=== PATIENT | female | born 1980 | race Caucasian/White ===

== ENCOUNTER → 2019-01-31 17:13 | Outpatient (CLI) | payer OTHER, SELFPAY ==
[2019-01-31 19:06] LABS: Basophils # 0.1 K/mm3 (0-0.2); Basophils % 0.7 % (0.1-2.0); Eosinophils # 0.3 K/mm3 (0.0-0.4); Hematocrit 41.9 % (37.0-47.0); Hemoglobin 13.6 g/dL (12.2-16.2); Lymphocytes # 3.4 K/mm3 (0.7-4.5); Lymphocytes % 32.7 % (10-50); Mean Corpuscular HGB Conc 32.5 g/dL (31.8-35.4); Mean Corpuscular Hemoglobin 28.6 pg (27.0-31.2); Mean Platelet Volume 7.6 fl (7.4-10.4); Monocytes # 0.9 K/mm3 (0.1-1.0); Monocytes % 8.3 % (1.7-9.3); Neutrophils # 5.7 K/mm3 (1.8-7.8); Neutrophils % 55.4 % (37.0-80.0); Platelet Count 426 K/mm3 (142-424); Red Blood Count 4.76 M/mm3 (4.20-5.40); Red Cell Distribution Width 13.5 % (11.5-17.5); White Blood Count 10.3 K/mm3 (4.8-10.8)
[2019-01-31 19:42] LABS: Erythrocyte Sedimentation Rate 15 mm/hr (0-20)
[2019-01-31 21:01] LABS: Alanine Aminotransferase 30 U/L (12-78); Albumin Level 3.9 gm/dL (3.4-5.0); Albumin/Globulin Ratio 1.1 (1.1-1.8); Alkaline Phosphatase 94 U/L (46-116); Anion Gap 16.1 mEq/L (5-15); Aspartate Amino Transferase 18 U/L (15-37); Bilirubin,Total 0.3 mg/dL (0.2-1.0); Blood Urea Nitrogen 12 mg/dL (7-18); C-Reactive Protein 1.1 mg/dL (0.0-0.9); Calcium 9.2 mg/dL (8.5-10.1); Carbon Dioxide 25 mmol/L (21.0-32.0); Chloride 102 mmol/L (98-107); Creatinine,Serum 0.84 mg/dL (0.55-1.02); Estimated Glomerular Filt Rate 76 ml/min (>60); GFR (African American) 92 ML/MIN (>60); Globulin 3.7 gm/dl (1.3-3.2); Glucose 91 mg/dL (74-106); Potassium 4.1 mmoL/L (3.5-5.1); Sodium 139 mmol/L (136-145); Total Protein,Serum 7.6 gm/dL (6.4-8.2)
== END ==
PROVIDERS: Visit Provider Emergency Medicine
DX: M54.2 Cervicalgia (principal)
CPT/HCPCS: 80053; 85025; 85651; 86140

== ENCOUNTER → 2019-02-17 14:58 | Outpatient (CLI) | payer OTHER, SELFPAY ==
--- NOTE | 2019-02-17 15:00 | CT_ITS ---
PROCEDURE: CT SOFT TISSUE NECK W CON CLINICAL HISTORY: swelling rt side of neck Right-sided neck pain COMPARISON: No exams were available for comparison TECHNIQUE: Oral Contrast: None IV Contrast: None Axial images obtained with sagittal and coronal reformats. All CT scans at the facility use one or more dose reduction, viz: automated exposure control, ma/kV adjustment per patient size (including targeted exams where dose is matched to indication, i.e. head), or iterative reconstruction technique. FINDINGS: Multiple attempts were made for IV access but were not successful. Soft tissue nodules present in the right aspect of the sphenoid sinus measuring 1.6 cm and may be due to retention cyst. There is prominence of the adenoids with a small calcification in the central aspect of the adenoid tissue. There is prominence of the soft tissues in the nasopharyngeal region on both sides. There is bilateral cervical adenopathy with nodes on the right measuring up to 2.9 x 1.8 cm in the submandibular region and nodes on the left measuring up to 3 x 1.7 cm also in the submandibular area. Mildly prominent nodes are present in the deep cervical chain bilaterally. There are small nodes in the submandibular region measuring up to 2 cm anterior to the right submandibular gland and anterior to the left submandibular gland. No abnormal fluid collection is evident. The submandibular glands have an unremarkable appearance. There is a small soft tissue density in the left parotid gland at 5 mm and may be due to small lymph node. The epiglottis and glottic region is unremarkable. There is mild nodularity of the thyroid gland without discrete mass evident. Lung apices are clear. No acute bony anomalies. There is complete opacification of the right maxillary sinus, moderate opacification of the ethmoid sinuses right more extensive than left, and mild mucosal thickening of the left maxillary sinus. Small amount fluid is present in the left mastoid sinus. There may be a small amount of fluid in the left middle ear canal as well. IMPRESSION: Bilateral cervical adenopathy which is nonspecific and could be reactive. Neoplastic process is not excluded. Follow-up suggested to confirm resolution or stability. Sinusitis, left mastoid effusion Prominent adenoids and nasopharyngeal mucosa. Dictated by: Jorge Messer MD 02/18/2019 10:07 Electronically signed by Jorge Messer MD in [place] 02/23/2019 14:02
== END ==
PROVIDERS: PCP Physician Assistant; Visit Provider Emergency Medicine
DX: M54.2 Cervicalgia (principal); R22.1 Localized swelling, mass and lump, neck
CPT/HCPCS: 70491

== ENCOUNTER 2020-06-04 08:57 | Emergency (ER) | payer OTHER, SELFPAY ==
[2020-06-04 09:00] VITALS: BP 141/87; PULSE 102; RESP 19; TEMP 36.9; O2SAT 98; BMI 41.5
--- NOTE | 2020-06-04 09:17 | HMH.EDUTC ---
[facility] [place] Clinical Impression: Viral syndrome, Exposure to COVID-19 virus Disposition: Home, Self-Care Condition on Discharge: Good Instructions: Fluticasone Nasal [place], DI for COVID-19 (Suspected or Confirmed ), COVID-19 Viral Test, COVID-19: Testing and Tracing, Preventing the Spread of Coronavirus Discharge Instructions Additional Instructions: *Monitor Temp, Over the counter Motrin or Tylenol as directed/as needed Tylenol every 4 hours and Motrin every 6 hours (as long as your family doctor has told you that you can take it) for fever or pain. and straight to ER if unable to lower temp less than 101.0 after medication given *Warm salt water gargles may help to soothe the throat *Throat Lozenges *Warm fluids like tea with honey may help to soothe the throat *Sleep elevated *Humidifier/Vaporizer *Flonase 2 sprays in each nostril daily but be aware that it may take 2-3 days before you notice improvement *Bromfed may cause drowsiness. Know how it effects you (your child) before driving, caring for small child, or sending your child to school. Not other antihistamines/allergy medications while taking bromfed Follow up IMMEDIATELY for new or worsening symptoms or no Noticeable improvement over the next 48-72 hours. 911 for difficulty breathing or swallowing You were tested for today for COVID19 your test result should be back in the next 24-48 hours, you may call to the [facility] to see if your test results are back in the next 48 hours [phone] [facility] hours are 9am-9pm You was given a handout with instructions for Self Quarantine and Self isolation for while you wait on test results and what to do if they are positive If you are positive the Health Dept will be contacting you also Prescriptions: Brompheniramine/Pseudoephed/Dm [Bromfed Dm Cough Syrup] 5 - 10 ml PO Q46H PRN #150 ml PRN Reason: Cough Transmission Status: Pending to [facility] Fluticasone Propionate [Flonase 50mcg nasal spray 16gm] 1 spr NS DAILY #1 bottle Transmission Status: Pending to [facility] Referrals: Laura Huitron PA [Primary Care Provider] - As needed Forms: Work/School Release Time of Disposition: :20 Medical Decision Making - Jacob Inquiry Pt receiving controlled substance: No Jacob was queried for this patient: No Vital Signs: 06/04/20 09:00 Temperature 98.4 F Temperature Source Oral Pulse Rate [Right Brachial] 102 H Respiratory Rate 19 Blood Pressure [Right Arm] 141/87 H Blood Pressure Mean [Right Arm] 105 Blood Pressure Source [Right Arm] Automatic Cuff Blood Pressure Position [Right Arm] Sitting 02 Sat by Pulse Oximetry 98 Oxygen Delivery Method Room Air Orders (Tests/Meds): ORDERS Category Date Time Status Covid-19 Nasal PCR Sendout P&C Routine Lab 06/04/20 09:05 Received Covid-19 Nasal PCR Sendout P&C Stat Lab 06/04/20 09:00 Ordered [facility] [place] HPI - General Stated complaint: covid exposure Time Seen by Provider: 06/04/20 09:17 Mode of Arrival: Ambulatory Source of Information: Patient Limitations: No Limitations Description of Symptoms (Recalled from Triage Doc. by RN): PATIENT REQUESTING COVID TEST D/T EXPOSURE THROUGH A CO-WORKER. C/O HAVING A COLD HEENT Symptoms (Recalled from RN notes): No Resp Symptoms (Recalled from RN notes): No Skin Symptoms (Recalled from RN notes): No MS Symptoms (Recalled from RN notes): No Functional Status (Recalled from RN notes): wnl - History of Present Illness Provider Complaint: Patient states that she was around a co-worker last week that tested positive for COVID over the weekend States that she has since started having runny nose and cough so they wanted to have her tested before she can return to work - Related Data Previous Rx's Medication Instructions Recorded Brompheniramine/Pseudoephed/Dm 5 - 10 ml PO Q46H PRN #150 ml 06/04/20 [Bromfed Dm Cough Syrup] Fluticasone Propionate [Flonase 1 spr NS DAILY #1 bottle 06/04/20 50mcg nasal
[2020-06-04 09:18] VITALS: BP 141/87; PULSE 102; RESP 19; TEMP 36.9; O2SAT 98
[2020-06-05 09:11] LABS: Covid-19 Nasal PCR Sendout P&C POSITIVE
--- NOTE | 2020-06-05 09:34 | PC.NURSE ---
patient notified of positive results
== END 2020-06-04 09:20 | disposition home or self-care (01) ==
PROVIDERS: Emergency Provider Nurse Practitioner; PCP Physician Assistant
DX: U07.1 COVID-19 (principal); B34.9 Viral infection, unspecified; E03.9 Hypothyroidism, unspecified; Z88.8 Allergy status to other drugs, medicaments and biological substances
CPT/HCPCS: 99201; U0004

== ENCOUNTER → 2020-12-07 09:27 | Outpatient (CLI) | payer OTHER, SELFPAY ==
[2020-12-07 10:14] LABS: Basophils # 0.1 K/mm3 (0-0.2); Basophils % 0.6 % (0.1-2.0); Eosinophils # 0.3 K/mm3 (0.0-0.4); Eosinophils % 3.1 % (0.1-12.0); Hematocrit 40.3 % (37.0-47.0); Hemoglobin 13.5 g/dL (12.2-16.2); Lymphocytes # 2.3 K/mm3 (0.7-4.5); Lymphocytes % 22.3 % (10-50); Mean Corpuscular HGB Conc 33.6 g/dL (31.8-35.4); Mean Corpuscular Hemoglobin 28.6 pg (27.0-31.2); Mean Corpuscular Volume 85.2 fl (81-99); Mean Platelet Volume 7.9 fl (7.4-10.4); Monocytes # 0.6 K/mm3 (0.1-1.0); Monocytes % 6.2 % (1.7-9.3); Neutrophils # 6.9 K/mm3 (1.8-7.8); Neutrophils % 67.8 % (37.0-80.0); Platelet Count 389 K/mm3 (142-424); Red Blood Count 4.73 M/mm3 (4.20-5.40); Red Cell Distribution Width 13.8 % (11.5-17.5); White Blood Count 10.1 K/mm3 (4.8-10.8)
[2020-12-07 10:42] LABS: Chloride 105 mmol/L (98-107); Potassium 4.1 mmoL/L (3.5-5.1); Sodium 138 mmol/L (136-145)
[2020-12-07 10:45] LABS: Alanine Aminotransferase 20 U/L (12-78); Albumin Level 4.2 g/dl (3.5-5.0); Albumin/Globulin Ratio 1.3 (1.1-1.8); Alkaline Phosphatase 100 U/L (38-126); Anion Gap 16.1 mEq/L (5-15); Aspartate Amino Transferase 25 U/L (14-36); Bilirubin,Total 0.6 mg/dl (0.2-1.3); Blood Urea Nitrogen 12 mg/dl (7-17); Carbon Dioxide 21 mmol/L (22.0-30.0); Cholesterol 128 mg/dl (140-200); Estimated Glomerular Filt Rate 93 ml/min (>60); GFR (African American) 112 ML/MIN (>60); Globulin 3.2 g/dL (1.3-3.2); Total Protein,Serum 7.4 g/dl (6.3-8.2); Triglycerides 134 mg/dl (30-150); VLDL Cholesterol 27 mg/dL (0-40)
[2020-12-07 10:46] LABS: Calcium 9.2 mg/dl (8.4-10.2); Chol/HDL Ratio 4.3 (1-3.5); Glucose 104 mg/dl (74-100); HDL Cholesterol 30 mg/dl (40-60)
[2020-12-07 10:57] LABS: Direct LDL Cholesterol 82.34 mg/dL (100-129)
[2020-12-07 11:00] LABS: 25-OH Vitamin D, Total 29.2 ng/mL (30-100)
[2020-12-07 11:17] LABS: Thyroid Stimulating Hormone 3.49 uIU/mL (0.465-4.68)
== END ==
PROVIDERS: Visit Provider Physician Assistant
DX: Z68.41 Body mass index [BMI] 40.0-44.9, adult (principal); E66.9 Obesity, unspecified; E55.9 Vitamin D deficiency, unspecified; G35 Multiple sclerosis
CPT/HCPCS: 36415; 80053; 80061; 82306; 84443; 85025

== ENCOUNTER 2022-01-11 08:59 | Emergency (ER) | payer OTHER, SELFPAY ==
--- NOTE | 2022-01-11 09:11 | HMH.EDUTC ---
[facility] [place] Disposition Clinical Impression: UTI (urinary tract infection) Qualifiers: Urinary tract infection type: site unspecified Hematuria presence: with hematuria Qualified Code(s): N39.0 - Urinary tract infection, site not specified Disposition: Home, Self-Care Condition on Discharge: Good Instructions: Urinary Tract Infection, Urine Culture, DI for Urinary Tract Infection (UTI), Phenazopyridine Additional Instructions: Drink plenty of fluids. Take tylenol or ibuprofen for pain or fever. Take the medications as directed. Follow up with your regular doctor. GO TO THE ER FOR ANY WORSENING SYMPTOMS The pyridium will make your urine turn orange, this is an expected side effect. It will stain your clothes if it comes into contact with them. We will culture the urine. That will tell what bacteria is causing your infection and which antibiotics will treat it best. Sometimes the first antibiotic we prescribe turns out to not work against different bacteria. So, make sure you follow up within 3 days if you are not getting better. Prescriptions: Ondansetron [Zofran 4mg ODT] 4 mg PO Q8HP PRN #12 tab PRN Reason: Nausea Transmission Status: Sent to [facility] Sulfamethoxazole/Trimethoprim [Bactrim DS tablet] 1 each PO BID 7 Days #14 tab Transmission Status: Sent to [facility] Phenazopyridine HCl [Pyridium 200mg Tablet] 200 pow PO TID #6 tab Transmission Status: Sent to [facility] Referrals: Laura Huitron PA [Primary Care Provider] - Time of Disposition: 09:55 Medical Decision Making - Medical Records Medical records reviewed: No: I reviewed the patient's medical records. - Jacob Inquiry Pt receiving controlled substance: No Vital Signs: 01/11/22 09:24 Temperature 98.3 F Temperature Source Oral Pulse Rate [Left] 78 Respiratory Rate 17 Blood Pressure [Right Arm] 135/79 Blood Pressure Mean [Right Arm] 97 02 Sat by Pulse Oximetry 97 - Lab Data Lab Results 01/11/22 09:08: Urine Color Yellow, Urine Appearance Clear, Urine pH 6.0, Ur Specific [place] <= 1.005, Urine Protein Negative, Urine Glucose (UA) Negative, Urine Ketones Negative, Urine Blood Negative, Urine Nitrate Negative, Urine Bilirubin Negative, Urine Urobilinogen 0.2, Ur Leukocyte Esterase Trace Orders (Tests/Meds): ORDERS Category Date Time Status Urine Culture Stat Micro 01/11/22 09:26 Received [facility] [place] HPI - General Stated complaint: possible uti Time Seen by Provider: 01/11/22 09:11 - History of Present Illness Provider Complaint: She c/o low back pain and dysuria for the past 2 days. - Related Data Previous Rx's Medication Instructions Recorded Fluticasone Propionate [Flonase 1 spr NS DAILY #1 bottle 06/04/20 50mcg nasal spray 16gm] ergocalciferol (vitamin D2) 1,250 1,250 mcg PO WEEKLY #5 cap 12/11/20 mcg (50,000 unit) capsule phentermine 37.5 mg tablet 37.5 mg PO DAILY #30 tab 01/02/21 Ondansetron [Zofran 4mg ODT] 4 mg PO Q8HP PRN #12 tab 01/11/22 Phenazopyridine HCl [Pyridium 200 pow PO TID #6 tab 01/11/22 200mg Tablet] Sulfamethoxazole/Trimethoprim 1 each PO BID 7 Days #14 tab 01/11/22 [Bactrim DS tablet] Allergies Allergy/AdvReac Type Severity Reaction Status Date / Time citalopram Allergy Mild NUMBNESS Verified 01/11/22 09:27 Horse Serum Proteins Allergy Unknown Uncoded 01/02/21 15:26 [facility] History - Hepatitis A Screen Attestation statement:: This patient has been screened for Hepatitis A risk factors. I have reviewed the patient's past medical history: Yes Other Medical History: Reports: Hypothyroidism, Other Comment: MS Laterality Cases: Bilateral: Tonsillectomy Amputation: No Fractures: No - Social History Smoking Status: Never smoker Alcohol Intake: never Substance Use Type: denies use Occupational Status: employed Family Hx:: Cancer, Hypertension, Heart Attack ROS Obtained: Yes All systems reviewed & no add
[2022-01-11 09:24] VITALS: BP 135/79; PULSE 78; RESP 17; TEMP 36.8; O2SAT 97; BMI 43.2
[2022-01-11 09:41] LABS: Apearance,Urine Clear (Clear); Color,Urine Yellow (Yellow); Specific Gravity, Urine <= 1.005 (1.005-1.030)
[2022-01-11 09:42] LABS: Bilirubin,Urine Negative (Negative); Blood, Urine Negative (Negative); Glucose,Urine (UA) Negative (Negative); Ketones,Urine Negative (Negative); Protein,Urine Negative (Negative); UTC Leukocyte Esterase,Urine Trace (Negative); UTC Nitrate,Urine Negative (Negative); Urobilinogen,Urine 0.2 EU/dl (0.2)
[2022-01-11 09:56] VITALS: BP 135/79; PULSE 78; RESP 17; TEMP 36.8
== END 2022-01-11 09:58 | disposition home or self-care (01) ==
PROVIDERS: Emergency Provider Nurse Practitioner Family; PCP Physician Assistant
DX: N39.0 Urinary tract infection, site not specified (principal); B96.1 Klebsiella pneumoniae [K. pneumoniae] as the cause of diseases classified elsewhere; Z16.11 Resistance to penicillins; Z16.29 Resistance to other single specified antibiotic
CPT/HCPCS: 81003; 87086; 87088; 87186; 99212; G0463

== ENCOUNTER 2022-05-04 13:19 | Emergency (ER) | payer OTHER, SELFPAY ==
[2022-05-04 14:45] VITALS: BP 134/88; PULSE 92; RESP 19; TEMP 37.2; O2SAT 98; BMI 44.6
--- NOTE | 2022-05-04 15:06 | EXP.UTC ---
Discharge Plan Disposition Patient Disposition: Home, Self-Care Condition: Good Prescriptions Prescriptions: New oseltamivir [Tamiflu] 75 mg capsule 75 mg PO BID Qty: 10 0RF Referrals Follow up/Referrals: Laura Huitron PA [Primary Care Provider] - See instructions Activity Restrictions/Add. Instructions Additional Instructions/Restrictions: Start Tamiflu today if you are going to take it. Discussed risk and possible benefits. Lots of rest Increase Fluids water, Gatorade, powerade, pedialyte,if infant/toddler/child Alternate Tylenol and / or ibuprofen as discussed for fever, aches, chills Follow up IMMEDIATELY with your family doctor for new or worsening Symptoms OR no noticeable improvement over the next 48-72 hours, 911 for difficulty or breathing You or your child area contagious until no fever, aches, chills for 24 hours with medication for symptoms Help Prevent the spread of influenza: ?Wash your hands often. Use soap and water. Wash your hands after you use the bathroom, change a child's diapers, or sneeze. Wash your hands before you prepare or eat food. Use gel hand cleanser that has 60% alcohol, when soap and water are not available. Do not touch your eyes, nose, or mouth unless you have washed your hands first. Cover your mouth when you sneeze or cough. Cough into a tissue or the bend of your arm. If you use a tissue, throw it away immediately and wash your hands. Clean shared items with a germ-killing tack cleaner. Clean table surfaces, doorknobs, and light switches. Do not share towels, silverware, and dishes with people who are sick. Wash bed sheets, towels, silverware, and dishes with soap and water. Wear a mask over your mouth and nose if you are sick. The face mask may help protect others from becoming infected with the flu. Wear the mask when in common areas of your home or if you seek care with a healthcare provider. Stay away from others if you are sick. Stay at home until 24 hours after your fever and symptoms are gone. Clinical Impressions Clinical Impression: Flu-like symptoms Stand Alone Forms Stand Alone Forms: Work/School Release Instructions Patient Instructions: Influenza, DI for Influenza -- Adult Discharge ED Provider: Christie Wagner [facility] [place] General Stated complaint: possible flu Mode of Arrival: Ambulatory Source of Information: Patient Limitations: No Limitations Time Seen by Provider: 05/04/22 15:06 Description of Symptoms (Recalled from Triage Doc. by RN): PATIENT C/O CHILLS AND COUGH THAT STARTED YESTERDAY. SHE STATES HER TESTED POSITIVE FOR FLU YESTERDAY HEENT Symptoms (Recalled from RN notes): No Resp Symptoms (Recalled from RN notes): Yes Skin Symptoms (Recalled from RN notes): No MS Symptoms (Recalled from RN notes): No Functional Status (Recalled from RN notes): WNL History of Present Illness Provider Complaint: Patient states that yesterday she started with fever, chills and body aches States that tested positive for Flu and she thinks she may have it now too Related Data Previous Rx's Medication Instructions Recorded oseltamivir 75 mg capsule (Tamiflu) 75 mg PO BID #10 caps 05/04/22 Allergies Allergy/AdvReac Type Severity Reaction Status Date / Time citalopram Allergy Mild NUMBNESS Verified 04/23/22 10:28 Horse Serum Proteins Allergy Unknown Uncoded 04/23/22 10:28 Worker's Comp Is this a Worker's Comp case?: No PFSH PFSH Medical History BMI 40.0-44.9, adult Multiple sclerosis Multiple sclerosis Surgical History Hx of tonsillectomy Social History (Updated 05/04/22 @ 14:58 by Graciela Abreu RN) Smoking Status: Never smoker alcohol intake: never substance use type:
[2022-05-04 15:09] VITALS: BP 134/88; PULSE 92; RESP 19; TEMP 37.2; O2SAT 98
[2022-05-04 15:14] LABS: UTC Influenza A Antigen Negative (Negative)
[2022-05-04 15:15] LABS: UTC Influenza B Antigen Negative (Negative)
== END 2022-05-04 15:27 | disposition home or self-care (01) ==
PROVIDERS: Emergency Provider Nurse Practitioner; PCP Physician Assistant
DX: J11.00 Influenza due to unidentified influenza virus with unspecified type of pneumonia (principal)
CPT/HCPCS: 87804; 99212; G0463

== ENCOUNTER → 2022-05-18 15:04 | Outpatient (CLI) | payer OTHER, SELFPAY ==
--- NOTE | 2022-05-18 15:07 | XR_ITS ---
FINAL REPORT CLINICAL HISTORY: foot pain FINDINGS: 3 weight-bearing views of the right foot were obtained. There is no acute fracture or dislocation. There are calcaneal spurs. The joint spaces are intact. The soft tissues are unremarkable. IMPRESSION: No acute process. Reviewed, Interpreted and Dictated by Bill Valdes III, MD Transcribed by Adolph Mancilla Authenticated and [facility]
--- NOTE | 2022-05-18 15:07 | XR_ITS ---
FINAL REPORT CLINICAL HISTORY: foot pain FINDINGS: LEFT FOOT Three weight-bearing views of the left foot demonstrate no acute fracture or dislocation. There is a plantar calcaneal spur. The visualized joint spaces are normally aligned. The soft tissues are unremarkable. IMPRESSION: No acute bony abnormality. Reviewed, Interpreted and Dictated by Bill Valdes III, MD Transcribed by Adolph Mancilla Authenticated and [facility]
== END ==
PROVIDERS: PCP Physician Assistant; Visit Provider Podiatrist
DX: M79.672 Pain in left foot (principal); M79.671 Pain in right foot
CPT/HCPCS: 73630

== ENCOUNTER 2023-01-01 15:13 | Emergency (ER) | payer OTHER, SELFPAY ==
[2023-01-01 15:14] VITALS: BP 119/93; PULSE 74; RESP 18; TEMP 36.8; O2SAT 97; BMI 42.9
--- NOTE | 2023-01-01 15:45 | CT_ITS ---
PROCEDURE INFORMATION: Exam: CTA Chest With Contrast Exam date and time: 01/01/2023 4:58 PM Age: 42 years old Clinical indication: Sternal or substernal pain; Additional info: Low sternal pain radiating to back TECHNIQUE: Imaging protocol: Computed tomographic angiography of the chest with contrast. Exam focused on the arteries. 3D rendering (Not supervised by radiologist): MIP and/or 3D reconstructed images were created by the technologist. Radiation optimization: All CT scans at this facility use at least one of these dose optimization techniques: automated exposure control; mA and/or kV adjustment per patient size (includes targeted exams where dose is matched to clinical indication); or iterative reconstruction. Contrast material: ISOVUE; Contrast volume: 100 ml; Contrast route: INTRAVENOUS (IV); REPORTING DATA: Count of CT and Cardiac NM exams in prior 12 months: This patient has received 0 known CTs and 0 known cardiac nuclear medicine studies in the 12 months prior to the current study. COMPARISON: CT SOFT TISSUE NECK W CON 02/17/2019 5:03 PM FINDINGS: Pulmonary arteries: There is suboptimal opacification of pulmonary arteries due to contrast bolus timing. Aorta: Unremarkable. No aortic aneurysm. No aortic dissection. Lungs: Bilateral ground-glass regions of opacification. Findings nonspecific and may reflect interstitial lung disease. An acute inflammatory process could not be entirely excluded. Pleural spaces: Unremarkable. No pneumothorax. No pleural effusion. Heart: Unremarkable. No cardiomegaly. No pericardial effusion. Coronary arteries: No evidence of coronary artery calcification. Lymph nodes: Unremarkable. No enlarged lymph nodes. Liver: Hepatic steatosis. Evidence of prior hepatic splenic granulomatous disease. Gallbladder and bile ducts: Cholelithiasis. Bones/joints: Irregularity of the left L1 transverse spinous process. Findings most likely chronic. Clinically correlate Soft tissues: Unremarkable. IMPRESSION: 1. No large or central pulmonary embolus. Evaluation of the peripheral pulmonary arteries is limited. 2. Cholelithiasis. 3. Please see above report for discussion of nonacute findings.
--- NOTE | 2023-01-01 15:46 | HMH.EDGENADL ---
Discharge Plan Disposition Patient Disposition: Home, Self-Care Condition: Good Prescriptions Prescriptions: New ondansetron 4 mg tablet,disintegrating 4 mg PO TID PRN (Reason: nausea and vomiting) 3 Days Qty: 12 0RF Referrals Follow up/Referrals: Laura Huitron PA [Primary Care Provider] - See instructions Parker Stewart MD [Staff Physician] - See instructions Activity Restrictions/Add. Instructions Additional Instructions/Restrictions: At this time is felt you are safe to be discharged home. If new or worsening symptoms please do not hesitate to return the emergency department. Please take your medication as prescribed and call surgery to schedule an appointment next week for continued evaluation. Clinical Impressions Clinical Impression: Symptomatic cholelithiasis Instructions Patient Instructions: DI for Acute Abdominal Pain Discharge ED Provider: Kushal Yan General Adult HPI General Chief complaint: Abdominal Pain Stated complaint: upper abd and back pain Time Seen by Provider: 01/01/23 15:31 Mode of Arrival: Ambulatory Source of Information: Patient Limitations: No Limitations Description of Symptoms (Recalled from ER Triage Doc. by RN): Patient states that she began to have upper abdominal pain at 1030 this morning. States she left work and on her way home she vomited once. History of Present Illness HPI narrative: Patient is a 42-year-old female with past medical history of MS that is well controlled who presents emergency department for evaluation of low sternal pain. History is obtained by patient at bedside. Onset was acute, she was doing nothing particular, spontaneous, low sternal pain radiating to her back, 1 episode of nonbloody nonbilious vomiting. Pain radiates through her sternum into her back bilaterally. Still passing flatus, last bowel movement earlier this afternoon, no dysuria, no lower abdominal pain. Pain is moderate in intensity. No other acute complaints at this time. Related Data Previous Rx's Medication Instructions Recorded ondansetron 4 mg disintegrating 4 mg PO TID PRN nausea and 01/01/23 tablet vomiting 3 days #12 tabs Allergies Allergy/AdvReac Type Severity Reaction Status Date / Time citalopram Allergy Mild NUMBNESS Verified 08/19/22 11:06 horse serum Allergy Mild Uncoded 05/20/22 13:18 [facility] Disclaimer: The information contained in this section may have been updated after the patient was seen, as this information can be updated by other users. Medical History BMI 40.0-44.9, adult Multiple sclerosis Multiple sclerosis Surgical History Hx of tonsillectomy Social History Smoking Status: Never smoker alcohol intake: never substance use type: denies use current occupational status: employed Travel in the last 8 weeks: None ROS Obtained: Yes Systems reviewed as appropriate & no additional complaints except as documented Physical Exam General General appearance: alert and in no apparent distress Head Head exam: atraumatic and normocephalic Eye Eye exam: Present PERRL and EOMI ENT ENT exam: Present mucous membranes moist Neck Neck exam: Present normal inspection Chest Chest inspection: Present normal inspection and symmetric chest wall rise Respiratory Respiratory exam: Present normal lung sounds bilaterally; Absent respiratory distress Cardiovascular Cardiovascular exam: Present regular rate and normal rhythm Abdominal Exam Abdominal exam: Present soft; Absent distention, tenderness, guarding or rebound Extremities Exam Extremities exam: Present normal inspection Neurological Exam Neurological exam: Present alert and oriented X3 Psychiatric Psychiatric exam: Present normal affect Skin Skin exam: Present warm and dry Medical Decision Making
[2023-01-01 15:53] LABS: Basophils # 0.1 K/mm3 (0-0.2); Basophils % 0.5 % (0.1-2.0); Eosinophils # 0.2 K/mm3 (0.0-0.4); Eosinophils % 1.5 % (0.1-12.0); Hematocrit 42.3 % (37.0-47.0); Hemoglobin 13.4 g/dL (12.2-16.2); Lymphocytes % 18.9 % (10-50); Mean Corpuscular HGB Conc 31.6 g/dL (31.8-35.4); Mean Corpuscular Hemoglobin 27.4 pg (27.0-31.2); Mean Corpuscular Volume 86.6 fl (81-99); Mean Platelet Volume 8.2 fl (7.4-10.4); Monocytes # 0.5 K/mm3 (0.1-1.0); Monocytes % 4.9 % (1.7-9.3); Neutrophils # 7.7 K/mm3 (1.8-7.8); Neutrophils % 74.2 % (37.0-80.0); Platelet Count 402 K/mm3 (142-424); Red Blood Count 4.88 M/mm3 (4.20-5.40); Red Cell Distribution Width 14.1 % (11.5-17.5); White Blood Count 10.4 K/mm3 (4.8-10.8)
--- NOTE | 2023-01-01 16:00 | ECG_ITS ---
APPROVED REPORT Exam: Resting ECG HR:64 bpm ECG Measurements Heart Rate 64 AXES KS 153 P 23 QRSd 112 QRS 0 QT 422 T 10 QTc 431 Conclusion SINUS RHYTHM MODERATE INTRAVENTRICULAR CONDUCTION DELAY [110+ ms QRS DURATION] BORDERLINE ECG UNCONFIRMED REPORT Electronically signed by : Reg Lee MD 01/02/2023 13:08:40
[2023-01-01 16:13] LABS: Alanine Aminotransferase 32 U/L (12-78); Albumin Level 4.7 g/dl (3.5-5.0); Albumin/Globulin Ratio 1.3 (1.1-1.8); Alkaline Phosphatase 116 U/L (38-126); Anion Gap 13.6 mEq/L (5-15); Aspartate Amino Transferase 37 U/L (14-36); Bilirubin,Total 0.4 mg/dl (0.2-1.3); Blood Urea Nitrogen 12 mg/dl (7-17); Calcium 8.9 mg/dl (8.4-10.2); Carbon Dioxide 23 mmol/L (22.0-30.0); Chloride 106 mmol/L (98-107); Creatinine Clearance Estimated 79 mL/min (50-200); Estimated Glomerular Filt Rate 79 ml/min (>60); GFR (African American) 95 ML/MIN (>60); Globulin 3.6 g/dL (1.3-3.2); Glucose 146 mg/dl (74-100); Lipase 44 U/L (23-300); Potassium 3.6 mmoL/L (3.5-5.1); Sodium 139 mmol/L (136-145); Total Protein,Serum 8.3 g/dl (6.3-8.2)
[2023-01-01 16:26] LABS: Troponin I < 0.01 ng/ml (0.00-0.034)
[2023-01-01 16:42] VITALS: BP 133/73; PULSE 64; O2SAT 98
--- NOTE | 2023-01-01 16:43 | PC.NURSE ---
rounded on pt, family at bs
--- NOTE | 2023-01-01 16:51 | PC.NURSE ---
CHECKED ON PT ASKED FOR A WATER, KRYSTLE SAID NO DUE TO WAITING FOR SCANS CALL LIGHT AT BS UPDATED PT
[2023-01-01 18:51] VITALS: BP 128/75; PULSE 64; RESP 18; TEMP 36.6; O2SAT 99
== END 2023-01-01 18:53 | disposition home or self-care (01) ==
PROVIDERS: Emergency Provider Emergency Medicine; PCP Physician Assistant
DX: K80.20 Calculus of gallbladder without cholecystitis without obstruction (principal); G35 Multiple sclerosis; R10.9 Unspecified abdominal pain
CPT/HCPCS: 71275; 80053; 83690; 84484; 85025; 93005; 99285; Q9967

== ENCOUNTER 2023-01-10 09:43 | Emergency (ER) | payer OTHER, SELFPAY ==
[2023-01-10 09:44] VITALS: BP 144/80; PULSE 80; RESP 16; TEMP 36.7; O2SAT 96; BMI 41.5
--- NOTE | 2023-01-10 09:54 | EXP.UTC ---
Discharge Plan Disposition Patient Disposition: Home, Self-Care Condition: Good Prescriptions Prescriptions: New phenazopyridine 200 mg Tablet 200 mg PO TID 2 Days Qty: 6 0RF nitrofurantoin monohyd/m-cryst [Macrobid] 100 mg Capsule 100 mg PO BID Qty: 10 0RF Rx Instructions: must administer with a meal/food No Action ondansetron 4 mg tablet,disintegrating 4 mg PO TID PRN (Reason: nausea and vomiting) 3 Days Qty: 12 0RF Referrals Follow up/Referrals: Laura Huitron PA [Primary Care Provider] - See instructions Activity Restrictions/Add. Instructions Additional Instructions/Restrictions: Drink plenty of fluids. Take tylenol or ibuprofen for pain or fever. Take the medications as directed. Follow up with your regular doctor. GO TO THE ER FOR ANY WORSENING SYMPTOMS The pyridium will make your urine turn orange, this is an expected side effect. It will stain your clothes if it comes into contact with them. We will culture the urine. That will tell what bacteria is causing your infection and which antibiotics will treat it best. Sometimes the first antibiotic we prescribe turns out to not work against different bacteria. So, make sure you follow up within 3 days if you are not getting better. Clinical Impressions Clinical Impression: UTI (urinary tract infection) Instructions Patient Instructions: DI for Urinary Tract Infection (UTI), Phenazopyridine Discharge ED Provider: Jerrell Gonzalez [facility] General Stated complaint: burning and frequent urination Mode of Arrival: Ambulatory Source of Information: Patient Limitations: No Limitations Time Seen by Provider: 01/10/23 09:54 Description of Symptoms (Recalled from Triage Doc. by RN): Patient reports burning and frequency with urination since yesterday. HEENT Symptoms (Recalled from RN notes): No Resp Symptoms (Recalled from RN notes): No Skin Symptoms (Recalled from RN notes): No MS Symptoms (Recalled from RN notes): No Functional Status (Recalled from RN notes): wnl History of Present Illness Provider Complaint: She states that for the past 1 day she has had dysuria, urinary frequency, lower abdominal discomfort and malaise. She has a history of getting frequent uti's. Related Data Previous Rx's Medication Instructions Recorded ondansetron 4 mg disintegrating 4 mg PO TID PRN nausea and 01/01/23 tablet vomiting 3 days #12 tabs nitrofurantoin 100 mg PO BID #10 caps 01/10/23 monohydrate/macrocrystals 100 mg capsule (Macrobid) phenazopyridine 200 mg tablet 200 mg PO TID 2 days #6 tabs 01/10/23 Allergies Allergy/AdvReac Type Severity Reaction Status Date / Time citalopram Allergy Mild NUMBNESS Verified 08/19/22 11:06 horse serum Allergy Mild Uncoded 05/20/22 13:18 Worker's Comp Is this a Worker's Comp case?: No [facility] Disclaimer: The information contained in this section may have been updated after the patient was seen, as this information can be updated by other users. Medical History BMI 40.0-44.9, adult Multiple sclerosis Multiple sclerosis Surgical History Hx of tonsillectomy Social History Smoking Status: Never smoker alcohol intake: never substance use type: denies use current occupational status: employed Travel in the last 8 weeks: None ROS Obtained: Yes All systems reviewed & no additional complaints except as documented Constitutional Constitutional: Reports system reviewed and no additional complaints, except as documented, Denies chills and Denies fever(s) Eyes Eyes: Denies eye discharge ENT Ears, Nose, Mouth, and Throat: Denies dysphagia, Denies sore throat and Denies throat swelling Cardiovascular Cardiovascular: Denies chest pain and Denies dyspnea Respiratory Respiratory: Denies chest congestion, Denies coug
[2023-01-10 10:24] VITALS: BP 144/80; PULSE 80; RESP 16; TEMP 36.7; O2SAT 96
[2023-01-10 10:37] LABS: Microscopic, Urine URINE MICROSCOPIC (MICROSCOPIC)
[2023-01-10 10:40] LABS: Appearance,Urine SL CLOUDY (Clear); Bilirubin,Urine Negative (Negative); Blood, Urine Negative (Negative); Color,Urine YELLOW (Yellow); Glucose,Urine (UA) Negative (Negative); Ketones,Urine Negative (Negative); Leukocyte Esterase,Urine 2+ (Negative); Nitrate,Urine Negative (Negative); Protein,Urine Negative (Negative); Specific Gravity, Urine 1.025 (1.005-1.030)
[2023-01-10 10:52] LABS: WBC,Urine 20-50 #/hpf (0-3)
[2023-01-10 10:53] LABS: Bacteria,Urine Trace /lpf
== END 2023-01-10 10:26 | disposition home or self-care (01) ==
PROVIDERS: Emergency Provider Nurse Practitioner Family; PCP Physician Assistant
DX: N39.0 Urinary tract infection, site not specified (principal); B96.89 Other specified bacterial agents as the cause of diseases classified elsewhere; R10.30 Lower abdominal pain, unspecified; R53.81 Other malaise; G35 Multiple sclerosis; Z68.41 Body mass index [BMI] 40.0-44.9, adult
CPT/HCPCS: 81001; 87086; 87088; 87186; 99212; 99214; G0463

== ENCOUNTER → 2023-02-08 12:46 | Outpatient (CLI) | payer OTHER, SELFPAY ==
[2023-02-08 13:09] LABS: Urine Pregnancy, HCG Qual. Negative (Negative)
== END ==
PROVIDERS: PCP Physician Assistant; Visit Provider Surgery
DX: Z01.812 Encounter for preprocedural laboratory examination (principal); K80.20 Calculus of gallbladder without cholecystitis without obstruction
CPT/HCPCS: 81025

== ENCOUNTER 2023-02-11 06:04 | Day surgery (SDC) | payer OTHER, SELFPAY ==
[2023-02-09 11:34] VITALS: BMI 43.2
[2023-02-11] VITALS (12 sets, daily range): BP systolic 126–156; BP diastolic 50–94; PULSE 71–91; RESP 15–18; TEMP 36.7–43; O2SAT 92–97
--- NOTE | 2023-02-11 06:44 | EXP.ANES.CKL ---
[facility] Disclaimer: The information contained in this section may have been updated after the patient was seen, as this information can be updated by other users. Medical History BMI 40.0-44.9, adult Multiple sclerosis Multiple sclerosis Surgical History History of tubal ligation Hx of tonsillectomy Family History Other No significant family history Social History Smoking Status: Never smoker alcohol intake: never substance use type: denies use current occupational status: employed Travel in the last 8 weeks: None [facility] Anesthesia Checklist Patient Identification Patient Identification: Arm Band and Verbal (Name & ) Structural Data Planned Operative Procedure/s: LAP GB Verified Documents: Surgical Consent NPO Status Verified Time NPO: 00:00 Additional verifications Patient : No Anesthesia Reactions: No Hx Blood Transfusions: No Blood Transfusion Reaction: No Airway Assessment Mallampati Score:: Class I C-Spine Mobility Assessed: Yes TMJ Mobility Assessed: Yes Dentition: Good Dentition Neurological Assessment Level of Consciousness: Awake and Alert Hx Seizures: No Anesthesia Plan Anesthesia Risk discussed: Yes ASA Class: I Anesthesia Type: General
--- NOTE | 2023-02-11 08:42 | P.OP_ITS ---
Date of procedure: 02/11/23 Pre-op Diagnosis:: Symptomatic cholelithiasis Post-op Diagnosis:: Chronic calculus cholecystitis Procedure performed:: Laparoscopic cholecystectomy Surgeon:: Parker Stewart MD ASSISTANT MANAGER/EMBALMER:: Jacob Wan Anesthesia: GETA Estimated blood loss (mL): 15 Operative findings:: Pericholecystic fat stranding Severe infundibular thickening Dome down approach utilized with Endoloop placement secondary to above findings Operative note:: After informed consent was obtained, the patient was taken to the operating room and placed in the supine position. General anesthesia was induced and the abdomen was prepped and draped in a sterile fashion. After infiltration with local anesthetic an infraumbilical incision was made. A Veress needle was placed in position. The abdomen was insufflated. A 5 mm optical trocar was placed in position. Under direct visualization, a 12 mm trocar was placed in the subxiphoid position and 2 additional 5 mm trocars were placed in the right upper quadrant. The gallbladder was elevated up and over the liver margin. The tissue around the cystic duct was carefully dissected. Severe tissue thickening was noted throughout the infundibulum. Dissection was difficult and the decision was made to proceed with a dome down approach with Endoloop placement secondary to these findings. Harmonic amaury were utilized to dissect the gallbladder away from the liver margin. Endoloops (x2) were then placed at the infundibulum prior to transection with harmonic amaury. The gallbladder was placed in a retrieval bag and removed through the subxiphoid trocar site. The right upper quadrant was thoroughly irrigated. No active bleeding or bile leak was noted. Fascia at the subxiphoid trocar site was reapproximated utilizing the NeoClose device. The remaining trocars were removed. All wounds were irrigated and skin was closed with 4-0 Monocryl in a mattress fashion to facilitate hemostasis.dressings were applied. The patient's anesthetic agents were reversed and extubation was completed prior to transfer to recovery in stable condition. Condition: stable Disposition: PACU Specimens:: Gallbladder and contents Complications:: No immediate
--- NOTE | 2023-02-11 08:52 | EXP.ANES.I ---
[facility] Anesthesia Record Part I Anesthesia Record I Intake, IV Amount: 1,400 Hydration: Adequate Estimated blood loss (mL): 10 Urine output (mL): 0 Blood Products used (#): none Blood Pressure: 143/83 SaO2: 92 Pulse Rate: 78 Airway Patency: Patent Respiratory Rate: 16 Temperature: 98.5 F Patient is:: Drowsy and Stable Stable to PACU at:: 08:55
--- NOTE | 2023-02-12 08:39 | P.PNANES_ITS ---
[facility] Anesthesia Record Part II Anesthesia Record Part II Discharge Time: 09:25 Destination: Surgical Day Care (OP Surgery) PACU nurse assessment reviewed?: Yes Patient Condition:: Good Anesthesia Complications:: None Swallowing reflex intact?: Yes Airway Patency: Patent Cyanosis?: No Blood Pressure: 156/74 SaO2: 94 Respiratory Rate: 16 Pulse Rate: 86 Temperature: 98.7 F Mental Status: Alert & Oriented Pain level:: 0 Nausea and/or vomitting:: None Intake, IV Amount: 0 Hydration: Adequate
[2023-02-12 08:40] VITALS: BP 156/74; PULSE 86; RESP 16; TEMP 37.1; O2SAT 94
== END 2023-02-11 10:30 | disposition home or self-care (01) ==
PROVIDERS: PCP Physician Assistant; Visit Provider Surgery
PROC: 0FT44ZZ Resection of Gallbladder, Percutaneous Endoscopic Approach (ICD-10-PCS; CPT 47562; principal; 2023-02-11 07:30)
DX: K80.10 Calculus of gallbladder with chronic cholecystitis without obstruction (principal)
CPT/HCPCS: 47562; 96374; J2405

== ENCOUNTER 2023-03-06 19:04 | Emergency (ER) | payer OTHER, SELFPAY ==
[2023-03-06 19:15] VITALS: BP 158/63; PULSE 68; RESP 16; TEMP 36.6; O2SAT 99; BMI 39.9
[2023-03-06 20:00] LABS: Basophils # 0.1 K/mm3 (0-0.2); Basophils % 0.9 % (0.1-2.0); Eosinophils # 0.3 K/mm3 (0.0-0.4); Eosinophils % 5.4 % (0.1-12.0); Hematocrit 46.4 % (37.0-47.0); Hemoglobin 14.5 g/dL (12.2-16.2); Lymphocytes # 1.2 K/mm3 (0.7-4.5); Lymphocytes % 20.2 % (10-50); Mean Corpuscular HGB Conc 31.4 g/dL (31.8-35.4); Mean Corpuscular Hemoglobin 27.8 pg (27.0-31.2); Mean Corpuscular Volume 88.6 fl (81-99); Mean Platelet Volume 9.1 fl (7.4-10.4); Monocytes # 0.5 K/mm3 (0.1-1.0); Monocytes % 9.2 % (1.7-9.3); Neutrophils # 3.7 K/mm3 (1.8-7.8); Neutrophils % 64.3 % (37.0-80.0); Platelet Count 380 K/mm3 (142-424); Red Blood Count 5.23 M/mm3 (4.20-5.40); Red Cell Distribution Width 14.5 % (11.5-17.5); White Blood Count 5.8 K/mm3 (4.8-10.8)
[2023-03-06 20:01] LABS: Appearance,Urine CLEAR (Clear); Blood, Urine Negative (Negative); Color,Urine YELLOW (Yellow); Glucose,Urine (UA) Negative (Negative); Ketones,Urine TRACE (Negative); Leukocyte Esterase,Urine Negative (Negative); Microscopic, Urine URINE MICROSCOPIC (MICROSCOPIC); Nitrate,Urine Negative (Negative); Protein,Urine Negative (Negative); Specific Gravity, Urine <= 1.005 (1.005-1.030); Urobilinogen,Urine 0.2 EU/dl (0.2)
[2023-03-06 20:02] LABS: Chloride 102 mmol/L (98-107); Potassium 3.9 mmoL/L (3.5-5.1); Sodium 137 mmol/L (136-145)
[2023-03-06 20:03] LABS: Bilirubin,Urine 1+ (Negative)
[2023-03-06 20:04] LABS: Blood Urea Nitrogen 6 mg/dl (7-17); Creatinine Clearance Estimated 180 mL/min (50-200); Estimated Glomerular Filt Rate 92 ml/min (>60); GFR (African American) 111 ML/MIN (>60)
[2023-03-06 20:05] LABS: Alanine Aminotransferase 466 U/L (12-78); Albumin Level 4.2 g/dl (3.5-5.0); Albumin/Globulin Ratio 1.1 (1.1-1.8); Alkaline Phosphatase 205 U/L (38-126); Anion Gap 13.9 mEq/L (5-15); Aspartate Amino Transferase 298 U/L (14-36); Bilirubin,Total 6.2 mg/dl (0.2-1.3); Calcium 8.9 mg/dl (8.4-10.2); Carbon Dioxide 25 mmol/L (22.0-30.0); Glucose 106 mg/dl (74-100); Lipase 37 U/L (23-300); Total Protein,Serum 8.2 g/dl (6.3-8.2)
[2023-03-06 20:11] LABS: HCG Qualitative, Serum Negative (Negative)
[2023-03-06 20:12] LABS: Bacteria,Urine Trace /lpf
--- NOTE | 2023-03-06 20:23 | CT_ITS ---
PROCEDURE INFORMATION: Exam: CT Abdomen And Pelvis With Contrast Exam date and time: 03/06/2023 9:31 PM Age: 42 years old Clinical indication: Abdominal pain; Additional info: Post lap chris, elevated liver enzymes, bili TECHNIQUE: Imaging protocol: Computed tomography of the abdomen and pelvis with contrast. Radiation optimization: All CT scans at this facility use at least one of these dose optimization techniques: automated exposure control; mA and/or kV adjustment per patient size (includes targeted exams where dose is matched to clinical indication); or iterative reconstruction. Contrast material: ISOVUE; Contrast volume: 75 ml; Contrast route: IV; REPORTING DATA: Count of CT and Cardiac NM exams in prior 12 months: This patient has received [address] and 0 known cardiac nuclear medicine studies in the 12 months prior to the current study. COMPARISON: CT ANGIO CHEST 01/01/2023 16:58 FINDINGS: Liver: Hepatic steatosis. Gallbladder and bile ducts: There are calcified stones in the gallbladder fossa that are favored to be in the cystic duct remnant. Pancreas: Normal. No ductal dilation. Spleen: Normal. No splenomegaly. Adrenal glands: Normal. No mass. Kidneys and ureters: Normal. No hydronephrosis. Stomach and bowel: Mild sigmoid diverticulosis without diverticulitis. Appendix: No evidence of appendicitis. Intraperitoneal space: Unremarkable. No free air. No significant fluid collection. Vasculature: Unremarkable. No abdominal aortic aneurysm. Lymph nodes: Unremarkable. No enlarged lymph nodes. Urinary bladder: Unremarkable as visualized. Reproductive: Unremarkable as visualized. Bones/joints: Unremarkable. No acute fracture. Soft tissues: Tiny fat containing umbilical hernia. Tiny fat containing umbilical hernia. Other findings: Stigmata of old granulomatous disease. Mild mucosal thickening in the paranasal sinuses. IMPRESSION: 1. There are calcified stones in the gallbladder fossa that are favored to be in the cystic duct remnant. If there is clinical evidence of biliary obstruction, consider MRCP to exclude choledocholithiasis. 2. Hepatic steatosis.
[2023-03-06 20:34] LABS: Bilirubin,Direct 5.2 mg/dl (0.0-0.4)
--- NOTE | 2023-03-06 22:31 | PC.NURSE ---
Dr. Stewart paged for ED doctor
--- NOTE | 2023-03-06 22:32 | PC.NURSE ---
ED doctor on phone with Dr. Stewart
--- NOTE | 2023-03-06 22:42 | PC.NURSE ---
ER MD contacted injection molding machine offbearer surgeon due to retained stone, [facility] surgeon deferred, and have placed a call out to [facility] for possible ERCP
--- NOTE | 2023-03-06 22:52 | PC.NURSE ---
[facility] contacted, no GI practice management consultant
--- NOTE | 2023-03-06 23:07 | PC.NURSE ---
call to transfer center, call transferred to ED doctor
--- NOTE | 2023-03-06 23:27 | PC.NURSE ---
Patient accepted to Dr Cordelia Stanley at ER.
--- NOTE | 2023-03-06 23:39 | HMH.EDGENADL ---
Discharge Plan Disposition Patient Disposition: Xfer Short-Term Hosp Condition: Fair Referrals Follow up/Referrals: Laura Huitron PA [Primary Care Provider] - See instructions Clinical Impressions Clinical Impression: Conjugated hyperbilirubinemia Stand Alone Forms Stand Alone Forms: Transfer Record - ED Instructions Patient Instructions: DI for Diarrhea and Traveler's Diarrhea -- Adult, DI for Diarrhea and Traveler's Diarrhea -- Child, DI for Nausea -- Adult, DI for Nausea -- Child Discharge ED Provider: Neftaly Lawson General Adult HPI General Chief complaint: Nausea/Vomiting/Diarrhea Stated complaint: Had surgery and cant seem to eating and drinking Time Seen by Provider: 03/06/23 19:11 Mode of Arrival: Ambulatory Source of Information: Patient Limitations: No Limitations Description of Symptoms (Recalled from ER Triage Doc. by RN): pt states she is post op from a chris on 02/11/[address] Stewart. pt states she had been able to eat and drink like normal until 02/25. Pt states at this time she started having N/V and was unable to tolerate anything PO. pt states she called Dr. Stewart on 02/26 and he believed she just had a virus. pt states she is not feeling any better and is still having N/V without tolerating anything PO. pt denies any other symptoms. History of Present Illness HPI narrative: Patient presents for evaluation of 4 days of nausea, vomiting, p.o. intolerance in the absence of fevers or overt abdominal pain, gradual in onset, constant, stable in course, after uncomplicated laparoscopic cholecystectomy on 02/11/2023, of note patient did have a dome down approach due to adhesions, but tolerated the procedure well with no postoperative complications, she denies any sick contacts or urinary symptoms or blood in her bowel movements or urine or emesis. No previous therapies. Related Data Allergies Allergy/AdvReac Type Severity Reaction Status Date / Time Horse/Equine Containing Allergy Unknown Verified 03/06/23 19:24 Products allergy reaction [facility] Disclaimer: The information contained in this section may have been updated after the patient was seen, as this information can be updated by other users. Medical History (Updated 03/06/23 @ 23:39 by Neftaly Lawson MD) BMI 40.0-44.9, adult Multiple sclerosis Multiple sclerosis Surgical History (Updated 09/06/23 @ 10:07 by PHYLLIS Méndez) History of laparoscopic cholecystectomy History of tubal ligation Hx of tonsillectomy Family History Other No significant family history Social History Smoking Status: Never smoker alcohol intake: never substance use type: denies use current occupational status: employed Travel in the last 8 weeks: None ROS Obtained: Yes Systems reviewed as appropriate & no additional complaints except as documented Physical Exam General General appearance: alert and in no apparent distress Head Head exam: atraumatic and normocephalic Eye Eye exam: Present normal appearance Neck Neck exam: Present normal inspection Chest Chest inspection: Present normal inspection and symmetric chest wall rise Respiratory Respiratory exam: Present normal lung sounds bilaterally; Absent respiratory distress Cardiovascular Cardiovascular exam: Present regular rate and normal rhythm Abdominal Exam Abdominal exam: Present soft and tenderness (Mild left upper and right upper tenderness to palpation with no associated guarding or rigidity); Absent guarding Neurological Exam Neurological exam: Present alert and oriented X3 Psychiatric Psychiatric exam: Present normal affect and normal mood Skin Skin exam: Present warm and dry Medical Decision Making Medical Records Medical records reviewed: Yes I reviewed the patient's medical records. Jacob Inquiry Pt receiving controlled substance:
--- NOTE | 2023-03-06 23:42 | PC.NURSE ---
Report called to Charge Nurse Teressa ESPINOZA ER
[2023-03-06 23:47] VITALS: BP 149/92; PULSE 88; RESP 18; TEMP 36.7; O2SAT 98
== END 2023-03-06 23:50 | disposition short-term general hospital (02) ==
PROVIDERS: Emergency Provider Emergency Medicine; PCP Physician Assistant
DX: E80.6 Other disorders of bilirubin metabolism (principal); R11.2 Nausea with vomiting, unspecified
CPT/HCPCS: 74177; 80053; 81001; 82248; 83690; 84703; 85025; 99285; Q9967

== ENCOUNTER → 2023-05-18 16:29 | Outpatient (CLI) | payer OTHER, SELFPAY ==
[2023-05-18 16:59] LABS: Basophils # 0.1 K/mm3 (0-0.2); Basophils % 0.5 % (0.1-2.0); Eosinophils # 0.3 K/mm3 (0.0-0.4); Eosinophils % 2.3 % (0.1-12.0); Hematocrit 40.6 % (37.0-47.0); Hemoglobin 13.6 g/dL (12.2-16.2); Lymphocytes # 2.9 K/mm3 (0.7-4.5); Lymphocytes % 23.3 % (10-50); Mean Corpuscular HGB Conc 33.6 g/dL (31.8-35.4); Mean Corpuscular Hemoglobin 28.7 pg (27.0-31.2); Mean Corpuscular Volume 85.6 fl (81-99); Monocytes # 0.8 K/mm3 (0.1-1.0); Monocytes % 6.2 % (1.7-9.3); Neutrophils # 8.5 K/mm3 (1.8-7.8); Neutrophils % 67.7 % (37.0-80.0); Platelet Count 418 K/mm3 (142-424); Red Blood Count 4.75 M/mm3 (4.20-5.40); Red Cell Distribution Width 14.4 % (11.5-17.5); White Blood Count 12.5 K/mm3 (4.8-10.8)
[2023-05-18 19:02] LABS: Alanine Aminotransferase 28 U/L (12-78); Albumin Level 4.4 g/dl (3.5-5.0); Albumin/Globulin Ratio 1.3 (1.1-1.8); Alkaline Phosphatase 91 U/L (38-126); Amylase 50 U/L (30-110); Anion Gap 13.9 mEq/L (5-15); Aspartate Amino Transferase 31 U/L (14-36); Bilirubin,Total 0.3 mg/dl (0.2-1.3); Blood Urea Nitrogen 12 mg/dl (7-17); Calcium 8.8 mg/dl (8.4-10.2); Carbon Dioxide 24 mmol/L (22.0-30.0); Chloride 103 mmol/L (98-107); Chol/HDL Ratio 4.8 (1-3.5); Cholesterol 143 mg/dl (140-200); Estimated Glomerular Filt Rate 91 ml/min (>60); GFR (African American) 111 ML/MIN (>60); Globulin 3.4 g/dL (1.3-3.2); Glucose 96 mg/dl (74-100); HDL Cholesterol 30 mg/dl (40-60); Lipase 76 U/L (23-300); Potassium 3.9 mmoL/L (3.5-5.1); Sodium 137 mmol/L (136-145); Total Protein,Serum 7.8 g/dl (6.3-8.2); Triglycerides 220 mg/dl (30-150); VLDL Cholesterol 44 mg/dL (0-40)
[2023-05-18 19:13] LABS: Direct LDL Cholesterol 84.96 mg/dL (100-129)
[2023-05-18 19:22] LABS: 25-OH Vitamin D, Total 30.2 ng/mL (30-100)
[2023-05-18 19:35] LABS: Thyroid Stimulating Hormone 3.66 uIU/mL (0.465-4.68)
== END ==
PROVIDERS: PCP Physician Assistant; Visit Provider Physician Assistant
DX: R10.13 Epigastric pain (principal); E66.9 Obesity, unspecified; Z68.41 Body mass index [BMI] 40.0-44.9, adult
CPT/HCPCS: 36415; 80053; 80061; 82150; 82306; 83690; 84443; 85025

== ENCOUNTER → 2023-05-21 08:16 | Outpatient (CLI) | payer OTHER, SELFPAY ==
--- NOTE | 2023-05-21 08:17 | MR_ITS ---
FINAL REPORT CLINICAL HISTORY: epigastric pain following ERCP COMPARISON: 03/06/2023 FINDINGS: Multiplanar MR imaging of the abdomen was performed without contrast. 3D reformatted images were obtained and reviewed. Images of the liver reveal no evidence of mass. The patient is status post cholecystectomy. There is no evidence of biliary ductal dilatation. There is no evidence of bile duct stone. The pancreas and pancreatic duct are normal. There are several small para-aortic nodes which are stable. IMPRESSION: No acute inflammatory process. Reviewed, Interpreted and Dictated by Bill Valdes III, MD Transcribed by Pia Silva Authenticated and [facility]
== END ==
PROVIDERS: PCP Physician Assistant; Visit Provider Physician Assistant
DX: R10.13 Epigastric pain (principal)
CPT/HCPCS: 74181; 76376

== ENCOUNTER 2023-11-23 08:31 | Day surgery (SDC) | payer OTHER, SELFPAY ==
[2023-11-19 13:47] VITALS: BMI 43.2
--- NOTE | 2023-11-23 08:48 | HMH.SCOPE ---
Procedure: Date: 11/23/23 Patient Date of :: 1980 Procedure Performed:: Esophagogastroduodenoscopy with biopsy Indications:: Nausea Gastroesophageal reflux Performing Provider:: Parker Stewart MD Referring Provider:: . Sedation:: Monitored anesthesia care Procedure:: After informed consent was obtained the patient was taken to the endoscopy suite. Sedation ensued after the patient was transferred to the left lateral decubitus position. Pulse, blood pressure, and oxygen saturation were monitored throughout the procedure. The endoscope was advanced beyond the duodenal bulb. Retroflexion within the gastric lumen was accomplished. The gastroscope was carefully removed and the patient was transferred to recovery in stable condition. Please see findings and specimens below for detail. Findings:: Distal plaque esophagitis consistent with candidal esophagitis Gastroesophageal junction at 35 cm Sliding hiatal hernia Minimal gastritis Specimens:: Antral biopsy Recommendations:: Follow-up pathology Diflucan ordered Consider repeat esophagogastroduodenoscopy in 6-8 weeks Consider UGI/SBFT Consider gastric emptying scan Consider gastroenterology evaluation Complications:: No immediate Estimated blood obtained (mL): 1 Colonoscopy Component Colonoscopy Component Was a colonoscopy performed during today's procedure?: No
[2023-11-23 08:51] VITALS: BP 150/76; PULSE 92; RESP 16; TEMP 36.2; O2SAT 98
[2023-11-23 09:00] LABS: Urine Pregnancy, HCG Qual. Negative (Negative)
[2023-11-23] MEDS: LACTATED RINGERS 1000ML 1,000 ML 25 ML IV (09:00)
[2023-11-23 09:10] VITALS: O2SAT 98
[2023-11-23 09:25] VITALS: BP 119/73; PULSE 85; RESP 17; TEMP 36.2; O2SAT 93
[2023-11-23 09:35] VITALS: BP 116/86; PULSE 84; RESP 17; O2SAT 97
[2023-11-23 09:45] VITALS: BP 125/70; PULSE 79; RESP 17; O2SAT 96
[2023-11-23 09:55] VITALS: BP 115/62; PULSE 71; RESP 18; O2SAT 96
== END 2023-11-23 09:56 | disposition home or self-care (01) ==
PROVIDERS: PCP Physician Assistant; Visit Provider Surgery
PROC: 0DJ08ZZ Inspection of Upper Intestinal Tract, Via Natural or Artificial Opening Endoscopic (ICD-10-PCS; CPT 43235; principal; 2023-11-23 09:30)
DX: K21.9 Gastro-esophageal reflux disease without esophagitis (principal); R11.0 Nausea; K44.9 Diaphragmatic hernia without obstruction or gangrene; K29.70 Gastritis, unspecified, without bleeding; B96.81 Helicobacter pylori [H. pylori] as the cause of diseases classified elsewhere
CPT/HCPCS: 43239; 81025; J7120

== ENCOUNTER 2023-12-10 09:48 | Emergency (ER) | payer OTHER, SELFPAY ==
[2023-12-10 09:50] VITALS: BP 150/74; PULSE 91; RESP 20; TEMP 36.7; O2SAT 97; BMI 48.6
[2023-12-10] MEDS: DEXAMETHASONE 4MG/ML 1ML VIAL 8 MG IM (10:12)
[2023-12-10 10:21] VITALS: BP 150/74; PULSE 91; RESP 20; TEMP 36.7; O2SAT 97
--- NOTE | 2023-12-10 10:32 | ED_ITS ---
Discharge Plan Disposition Patient Disposition: Home, Self-Care Condition: Good Prescriptions Prescriptions: New triamcinolone acetonide 0.1 % cream 1 applic topical BID PRN (Reason: itching) Qty: 30 0RF methylprednisolone 4 mg Tablets,Dose Pack 4 mg PO DIRECTED 6 Days Qty: 21 0RF Rx Instructions: Take 1 pack as directed for 6 days No Action pantoprazole 40 mg tablet,delayed release (DR/EC) 40 mg PO DAILY nebivolol 5 mg tablet 5 mg PO DAILY Referrals Follow up/Referrals: Laura Huitron PA [Primary Care Provider] - See instructions Activity Restrictions/Add. Instructions Additional Instructions/Restrictions: Try to identify and avoid contact with the offending substance. Don't start the oral steroids until tomorrow. Don't put the topical steroids (triamcinolone) on your face or your groin. Follow up with your regular doctor. GO TO THE ER FOR ANY WORSENING SYMPTOMS OR CONCERNS Clinical Impressions Clinical Impression: Contact dermatitis Instructions Patient Instructions: DI for Contact Dermatitis, Triamcinolone Topical, Dexamethasone Injection Discharge ED Provider: Jerrell Gonzalez [facility] General Stated complaint: allergic reaction Mode of Arrival: Ambulatory Source of Information: Patient Limitations: No Limitations Time Seen by Provider: 12/10/23 10:32 Description of Symptoms (Recalled from Triage Doc. by RN): PATIENT C/O POISON SUMAC RASH TO FACE, NECK, AND LEFT ARM THAT SHE GOT WHILE WEED EATING ON WEDNESDAY HEENT Symptoms (Recalled from RN notes): No Resp Symptoms (Recalled from RN notes): No Skin Symptoms (Recalled from RN notes): Yes MS Symptoms (Recalled from RN notes): No Functional Status (Recalled from RN notes): WNL Related Data Home Medications Medication Instructions Recorded Confirmed nebivolol 5 mg tablet 5 mg PO DAILY 12/10/23 12/10/23 pantoprazole 40 mg tablet,delayed 40 mg PO DAILY 12/10/23 12/10/23 release Previous Rx's Medication Instructions Recorded methylprednisolone 4 mg tablets in 4 mg PO DIRECTED 6 days #21 tabs 12/10/23 a dose pack triamcinolone acetonide 0.1 % 1 applic topical BID PRN itching 12/10/23 topical cream #30 grams Allergies Allergy/AdvReac Type Severity Reaction Status Date / Time Horse/Equine Containing Allergy Unknown Verified 11/23/23 08:51 Products allergy reaction Worker's Comp Is this a Worker's Comp case?: No [facility] Disclaimer: The information contained in this section may have been updated after the patient was seen, as this information can be updated by other users. Medical History (Updated 12/10/23 @ 10:34 by Jerrell Gonzalez APRN) Hypertension BMI 40.0-44.9, adult Multiple sclerosis Multiple sclerosis Surgical History History of ERCP History of laparoscopic cholecystectomy History of tubal ligation Hx of tonsillectomy Family History Other No significant family history Social History Smoking Status: Never smoker alcohol intake: never substance use type: denies use current occupational status: employed Travel in the last 8 weeks: None ROS Obtained: Yes All systems reviewed & no additional complaints except as documented Constitutional Constitutional: Denies chills and Denies fever(s) Eyes Eyes: Denies eye discharge ENT Ears, Nose, Mouth, and Throat: Denies dizziness, Denies otalgia and Denies sore throat Cardiovascular Cardiovascular: Denies chest pain Respiratory Respiratory: Denies shortness of breath, Denies chest congestion, Denies cough, Denies stridor and Denies wheezing Gastrointestinal Gastrointestingal: Denies nausea or vomiting Musculoskeletal Musculoskeletal: Reports system reviewed and no additional complaints, except as documented and Denies arthralgias Integumentary/Breasts Skin/Breast: Reports as per HPI and Reports rash Neurologic Neurologic: Denies dizziness and Denies paresthesias Allergic/Immunologic Allergic/Immunologic: Denies wheezing Physical Exam General General appearance: alert and in no apparent distress Head Head exam: atraumatic, normocephalic and normal inspection Eye Eye exam: Present normal appearance, PERRL and EOMI ENT ENT exam: Present normal exam, normal oropharynx, mucous membranes moist, TM's normal bilaterally and normal external ear exam Neck Neck exam: Present normal inspection, full ROM and trachea midline; Absent meningismus or lymphadenopathy Chest Chest inspection: Present normal inspection and symmetric chest wall rise; Absent tenderness Respiratory Respiratory exam: Present normal lung sounds bilaterally; Absent respiratory distress Cardiovascular Cardiovascular exam: Present regular rate and normal rhythm; Absent JVD Abdominal Exam Abdominal exam: Present soft and normal bowel sounds; Absent distention, tenderness or guarding Extremities Exam Extremities exam: Present normal inspection, full ROM and normal capillary refill; Absent calf tenderness Back Exam Back exam: Present normal inspection; Absent tenderness Neurological Exam Neurological exam: Present alert and oriented X3 Psychiatric Psychiatric exam: Present normal affect and normal mood Skin Skin exam: Present rash Lymphatic Lymphatic Findings: no adenopathy Medical Decision Making Medical Records Medical records reviewed: No I reviewed the patient's medical records. Jacob Inquiry Pt receiving controlled substance: No Vital Signs: 12/10/23 09:50 12/10/23 10:21 Temperature 98.0 F 98.0 F Temperature Source Oral Pulse Rate 91 H Pulse Rate [Left Brachial] 91 H Respiratory Rate 20 20 Blood Pressure 150/74 H Blood Pressure [Left Arm] 150/74 H Blood Pressure Mean [Left Arm] 99 Blood Pressure Source [Left Arm] Automatic Cuff Blood Pressure Position [Left Arm] Sitting 02 Sat by Pulse Oximetry 97 Oxygen Delivery Method Room Air Orders (Tests/Meds): ED MEDICATIONS Discontinued Medications Generic Name Dose Route Start Last Admin Trade Name Fuentesq PRN Reason Stop Dose Admin Dexamethasone Sodium Phosphate 8 mg 12/10/23 10:07 12/10/23 10:12 Dexamethasone 4mg/Ml 1ml Vial IM 12/10/23 10:08 8 mg ONCE ONE Administration
== END 2023-12-10 10:38 | disposition home or self-care (01) ==
PROVIDERS: Emergency Provider Nurse Practitioner Family; PCP Physician Assistant
DX: L25.5 Unspecified contact dermatitis due to plants, except food (principal); W60.XXXA Contact with nonvenomous plant thorns and spines and sharp leaves, initial encounter
CPT/HCPCS: 96372; 99212; 99214; G0463; J1100

== ENCOUNTER 2024-01-25 09:37 | Outpatient (CLI) | payer OTHER, SELFPAY ==
--- NOTE | 2024-01-25 09:38 | NM_ITS ---
FINAL REPORT TECHNIQUE: Sequential anterior images were obtained after the ingestion of 2 whole eggs, toast, and water radiolabeled with 0.55 mCi technetium 99M sulfur colloid. CLINICAL HISTORY: nausea 9:50AM 0.55 MCI TC SULFUR COLLOID INJ INTO 2 WHOLE EGGS, TOAST AND WATER COMPARISON: None FINDINGS: GASTRIC EMPTYING SCAN Static images show normal emptying of the stomach into the small bowel. Based on the time activity curve, the estimated half-emptying time is 125 minutes which is abnormally prolonged. IMPRESSION: Abnormally prolonged gastric emptying time which may represent gastric outlet obstruction or gastroparesis. Reviewed, Interpreted and Dictated by Bill Valdes III, MD Transcribed by Olivia Gatica Authenticated and [facility]
[2024-01-25] MEDS: TC99M SULF.COLLOID;1 DOSE (UP TO 20 MCI) IV (09:58)
== END 2024-01-25 23:59 | disposition home or self-care (01) ==
LOC: RAD 09:38
PROVIDERS: PCP Nurse Practitioner Family; Visit Provider Surgery
DX: R11.0 Nausea (principal)
CPT/HCPCS: 78264; A9541

== ENCOUNTER 2024-01-31 08:40 | Outpatient (CLI) | payer OTHER, SELFPAY ==
--- NOTE | 2024-01-31 08:41 | FL_ITS ---
FINAL REPORT CLINICAL HISTORY: 260.06 mGy 5596.38 DAP 2:34 fluoro N/V FINDINGS: UPPER GI WITH SBFT HISTORY: Epigastric pain with nausea and vomiting PROCEDURE: The patient ingested barium. Effervescent crystals were also administered. Spot and overhead films were obtained. Additional barium was administered for a SBFT. Fluoro time: 2 minutes 34 seconds Radiation exposure in Reference air Kerma: 260.06 mGy. FINDINGS: The esophagus is normal. There is a small to moderate sliding type hiatal hernia. Gastroesophageal reflux was demonstrated to the thoracic inlet. Peristalsis is normal. The rugal fold pattern of the stomach is normal. The duodenal bulb is normal. IMPRESSION: Small to moderate hiatal hernia with gastroesophageal reflux. SBFT: The assessment specialist film is normal. There is no evidence of obstruction. The mucosal fold pattern is normal. The terminal ilium is normal. IMPRESSION: Normal SBFT. Films reviewed, interpreted and dictated by Dr. Hoyos. Transcribed by Charles Layton PA-C. Reviewed, Interpreted and Dictated by Pranav Hoyos MD Transcribed by SUZANNE Bean Authenticated and [facility]
[2024-01-31] MEDS: DIATRIZOATE MEGLUMINE(GASTROGRAFIN) 66%-10% 120ML 15 ML PO (09:52)
[2024-01-31] MEDS: BARIUM SULFATE(LIQUID E-Z-PAQUE);355ML BOTTLE 355 ML PO (09:52)
[2024-01-31] MEDS: E-Z-GASII EFFERVESCENT GRANULES;1PK 1 EACH PO (09:52)
[2024-01-31] MEDS: BARIUM SULFATE (E-Z-HD 340GM);135ML BOTTLE 135 ML PO (09:52)
== END 2024-01-31 23:59 | disposition home or self-care (01) ==
LOC: RAD 08:41
PROVIDERS: PCP Physician Assistant; Visit Provider Surgery
DX: R11.0 Nausea (principal)
CPT/HCPCS: 74246; 74248; Q9963

== ENCOUNTER 2024-04-09 08:01 | Emergency (ER) | payer OTHER, SELFPAY ==
[2024-04-09 08:02] VITALS: BP 131/75; PULSE 81; RESP 18; TEMP 36.6; O2SAT 99; BMI 46.5
[2024-04-09 08:06] VITALS: BP 131/75; PULSE 78; O2SAT 97
--- NOTE | 2024-04-09 08:07 | PC.NURSE ---
Dr. Yan at BS for pt eval
--- NOTE | 2024-04-09 08:11 | XR_ITS ---
PROCEDURE INFORMATION: Exam: XR Right Hip Exam date and time: 04/09/2024 8:12 AM Age: 43 years old Clinical indication: Injury or trauma; Fall; Blunt trauma (contusions or hematomas); Right; Hip; Additional info: Fall x 4 days ago, pain in right hip TECHNIQUE: Imaging protocol: Radiologic exam of the right hip. Views: 2 or 3 views hip with pelvis when performed. COMPARISON: CT ABDOMEN PELVIS W CON 03/06/2023 9:31 PM FINDINGS: Bones/joints: There is no evidence of acute fracture.There is no evidence of malalignment or dislocation. Soft tissues: Unremarkable. IMPRESSION: There is no evidence of acute fracture.There is no evidence of malalignment or dislocation.
--- NOTE | 2024-04-09 08:11 | XR_ITS ---
PROCEDURE INFORMATION: Exam: XR Right Femur Exam date and time: 04/09/2024 8:14 AM Age: 43 years old Clinical indication: Injury or trauma; Fall; Blunt trauma; Hip; Right; Additional info: R hip fall x 4 days ago, pain TECHNIQUE: Imaging protocol: Radiologic exam of the right femur. Views: 2 views. COMPARISON: CR Hip R 04/09/2024 8:12 AM FINDINGS: Bones/joints: There is no evidence of acute fracture.There is no evidence of malalignment or dislocation. Soft tissues: Unremarkable. IMPRESSION: There is no evidence of acute fracture.There is no evidence of malalignment or dislocation.
--- NOTE | 2024-04-09 08:12 | ED_ITS ---
Discharge Plan Disposition Patient Disposition: Home, Self-Care Prescriptions Prescriptions: New methocarbamol 500 mg tablet 1,000 mg PO Q8H PRN (Reason: muscle pain and spasm) Qty: 30 0RF No Action metoclopramide HCl [Reglan] 5 mg tablet 5 mg PO QID 30 Days Qty: 120 5RF Rx Instructions: administer 30 minutes before meals Referrals Follow up/Referrals: Arslan Galloway DO [Staff Physician] - See instructions Provider,Referral, MD [Primary Care Provider] - See instructions Activity Restrictions/Add. Instructions Additional Instructions/Restrictions: At this time it was felt you are safe to be discharged home. If new or worsening symptoms please do not hesitate to return the emergency department. If symptoms persist 7 days after the injury please call and schedule appoint with Dr. Galloway. Clinical Impressions Clinical Impression: Acute hip pain, Fall Print Language Print Language: Thai Discharge ED Provider: Kushal Yan General Adult HPI General Chief complaint: PAIN Stated complaint: AO 04/05 Fall Right hip pain Time Seen by Provider: 04/09/24 08:06 Mode of Arrival: Ambulatory Source of Information: Patient Limitations: No Limitations Description of Symptoms (Recalled from ER Triage Doc. by RN): pt states she tripped and fell on Wednesday. pt states she has R hip pain that has increasingly gotten worse. pt rates her pain a 7/10 and is dull/aching in nature. History of Present Illness HPI narrative: Patient is a 43-year-old female with no pertinent past medical history presents emergency department for evaluation of traumatic injury sustained in a fall. Patient tripped on her feet had a mechanical fall from ground-level few days ago falling onto her right hip. She has been able to bear weight since however with squatting or lifting objects she feels pain that begins in her right hip and wraps around her buttock. It is not midline in her lower back. She has no reported urinary or bowel incontinence. It is not tender. No other acute complaints at this time. Denies other trauma. Related Data Previous Rx's ?Medication ?Instructions ?Recorded metoclopramide HCl 5 mg tablet 5 mg PO QID 30 days #120 tabs 02/18/24 (Reglan) methocarbamol 500 mg tablet 1,000 mg (2 x 500 mg) PO Q8H PRN 04/09/24 muscle pain and spasm #30 tabs Allergies Allergy/AdvReac Type Severity Reaction Status Date / Time Horse/Equine Containing Allergy Unknown Verified 02/18/24 11:23 Products allergy reaction PFSH [facility] Disclaimer: The information contained in this section may have been updated after the patient was seen, as this information can be updated by other users. Medical History Hypertension BMI 40.0-44.9, adult Multiple sclerosis Multiple sclerosis Surgical History History of esophagogastroduodenoscopy (EGD) History of ERCP History of laparoscopic cholecystectomy History of tubal ligation Hx of tonsillectomy Family History Other No significant family history Social History Smoking Status: Never smoker alcohol intake: never substance use type: denies use current occupational status: employed Travel in the last 8 weeks: None Other Medical History Have you received the Pneumonia Vaccine: No ROS Obtained: Yes Systems reviewed as appropriate & no additional complaints except as documented Physical Exam General General appearance: alert and in no apparent distress Head Head exam: atraumatic and normocephalic Eye Eye exam: Present PERRL and EOMI ENT ENT exam: Present mucous membranes moist Neck Neck exam: Present normal inspection Chest Chest inspection: Present normal inspection and symmetric chest wall rise Respiratory Respiratory exam: Absent respiratory distress Cardiovascular Cardiovascular exam: Present regular rate and normal rhythm Abdominal Exam Abdominal exam: Present soft Extremities Exam Extremities exam: Present normal inspection and other (Nontender right hip, 5 out of 5 strength at the hip, knee. Palpable dorsal pedal pulse on the right.) Back Exam Back exam: Absent tenderness (No midline tenderness) Neurological Exam Neurological exam: Present alert Psychiatric Psychiatric exam: Present normal affect Skin Skin exam: Present warm and dry Medical Decision Making Medical Records Screening: Per USPSTF and CDC recommendations, given the prevalence of disease in our region, it is our hospital?s policy to screen for HIV and viral Hepatitis for all patients aged 18 and over and those with ongoing risk factors. Jacob Inquiry Pt receiving controlled substance: No Vital Signs: 04/09/24 08:02 04/09/24 08:06 Temperature 97.8 F Temperature Source Oral Pulse Rate 78 Pulse Rate [Left] 81 Respiratory Rate 18 Blood Pressure 131/75 Blood Pressure [Right Arm] 131/75 Blood Pressure Mean [Right Arm] 93 Blood Pressure Source [Right Arm] Automatic Cuff Blood Pressure Position [Right Arm] Sitting 02 Sat by Pulse Oximetry 99 97 Oxygen Delivery Method Room Air Room Air Orders (Tests/Meds): ED MEDICATIONS Discontinued Medications Generic Name Dose Route Start Last Admin Trade Name Anabella PRN Reason Stop Dose Admin Acetaminophen 1,000 mg 04/09/24 08:11 04/09/24 08:27 Acetaminophen 500mg Tab PO 04/09/24 08:12 1,000 mg ONCE ONE Administration Methocarbamol 1,000 mg 04/09/24 08:12 04/09/24 08:27 Methocarbamol 500mg Tablet PO 04/09/24 08:13 1,000 mg ONCE ONE Administration ORDERS Category Date Time Status Femur XR right 2 views [XR femur RT 2V] Stat Exams 04/09/24 08:11 Taken Hip XR right minimum 2 views [XR hip RT 2-3V w/pelvis] Exams 04/09/24 08:11 Taken Stat Medical Decision Narrative: In summary patient is a 43-year-old female past medical history described above who presents emergency department for evaluation of traumatic injury sustained in a fall. Patient is hemodynamically stable nontoxic-appearing upon arrival, afebrile. Patient is not particularly tender and only has difficulty with ranging with weightbearing loads or in deep squats makes me suspect that patient has muscular tenderness injury rather than fracture. However fracture remains on the differential and workup will be conducted with x-rays. No midline tenderness in the lumbar spine to necessitate CT imaging although was considered will be deferred. Initial inventions include Tylenol and Robaxin. X-rays informally interpreted by me, no acute displaced fracture. Patient was ambulatory at bedside and is appropriate for outpatient management if symptoms persist will schedule appoint with Dr. Galloway. Patient was discharged with a course of methocarbamol. Critical Care Critical Care Time Critical Care Time: No
[2024-04-09] MEDS: ACETAMINOPHEN 500MG TAB 1000 MG PO (08:27)
[2024-04-09] MEDS: METHOCARBAMOL 500MG TABLET 1000 MG PO (08:27)
--- NOTE | 2024-04-09 08:31 | PC.NURSE ---
I rounded on the pt, no new complaints at this time. no needs voiced. call quintana in reach.
[2024-04-09 09:02] VITALS: BP 127/79; PULSE 77; RESP 16; TEMP 36.6
== END 2024-04-09 09:02 | disposition home or self-care (01) ==
PROVIDERS: Emergency Provider Emergency Medicine
DX: M25.551 Pain in right hip (principal); W01.0XXA Fall on same level from slipping, tripping and stumbling without subsequent striking against object, initial encounter; Y93.9 Activity, unspecified; Y92.9 Unspecified place or not applicable
CPT/HCPCS: 73502; 73552; 99283

== ENCOUNTER 2025-04-30 15:00 | Outpatient (CLI) | payer OTHER, SELFPAY ==
--- NOTE | 2025-04-30 15:04 | XR_ITS ---
FINAL REPORT CLINICAL HISTORY: Evaluation of Right Foot Pain FINDINGS: RIGHT FOOT 3 views of the right foot were obtained. There is no acute fracture or dislocation. There is a small to moderate plantar spur. Visualized joint spaces are normally aligned. Soft tissues are unremarkable. IMPRESSION: No acute bony abnormality. Reviewed, Interpreted and Dictated by Pranav Hoyos MD Transcribed by Pam Terry Authenticated and [facility]
--- NOTE | 2025-04-30 15:04 | XR_ITS ---
FINAL REPORT CLINICAL HISTORY: Evaluation of Left Foot Pain FINDINGS: LEFT FOOT Three views of the left foot demonstrate no acute fracture or dislocation. There is a moderate plantar spur. The visualized joint spaces are normally aligned. The soft tissues are unremarkable. IMPRESSION: No acute bony abnormality. Reviewed, Interpreted and Dictated by Pranav Hoyos MD Transcribed by Pam Terry Authenticated and [facility]
== END 2025-04-30 23:59 | disposition home or self-care (01) ==
LOC: RAD 15:01
PROVIDERS: PCP Student in an Organized Health Care Education/Training Program; Visit Provider Student in an Organized Health Care Education/Training Program
DX: M77.32 Calcaneal spur, left foot (principal); M77.31 Calcaneal spur, right foot
CPT/HCPCS: 73630